=== PATIENT | female | born 1945 | race Caucasian/White ===

== ENCOUNTER 2022-03-17 13:29 | Inpatient (IN) | payer MEDICARE, OTHER ==
[~2022-03-17] VITALS: Ht 170.2 cm; Wt 78.9 kg
--- NOTE | 2022-03-17 13:45 | NUR ---
Spoke with CAITLIN Perdomo regarding psych eval, she stated Monik will be here for eval, eta 1430.
--- NOTE | 2022-03-17 15:32 | NUR ---
Monik at bedside for psych eval.
--- NOTE | 2022-03-17 16:37 | NUR ---
Finished calling report to KEON Aguilar.
--- NOTE | 2022-03-17 17:00 | NUR ---
Admitted at a 76 years old female from ER to the [facility]HU on a 5150 for DTS. Per hold, patient has a long history of depression and overdose of 30 pills 300 mg gabapentin and 30 pills of 50 mg of Tramadol was hospitalization at [facility] until medical clear Upon admission, patient was alert and oriented x4 denies any suicidal ideation . She denied SI/HI/AH/VH.she signed admission papers and her skin assessment was done Patient was advised of her hold and her advisement was given as well as her booklet of patient's .
[2022-03-17 17:01] VITALS: BP 148/94
[2022-03-17] MEDS ORDERED: MAGNESIUM HYDROXIDE 30 ML LIQUID UDC PO PRN (17:15)
[2022-03-17] MEDS ORDERED: ACETAMINOPHEN 325 MG TABLET PO PRN (17:15)
[2022-03-17] MEDS ORDERED: ZOLPIDEM 5 MG TABLET PO PRN (17:15)
[2022-03-17] MEDS ORDERED: MAG HYDROX/AL HYDROX/SIMETH 30 ML LIQUID UDC PO PRN (17:15)
[2022-03-17] MEDS ORDERED: GABA300C PO (18:08)
[2022-03-17] MEDS ORDERED: LOSA100T3 PO (18:08)
--- NOTE | 2022-03-17 18:26 | NUR ---
Patient came in for admission to room 138 bed A, alert and oriented x4. Patient appears to be very anxious, concerns about her roommate and ability to rest without being disturbed. Patient has old bruises in left upper arm and left lower abdomen, and old surgical scar mid abdominal area. She ambulates ad noemy, continent of bowel and bladder. She denied any thought of suicidal at this time. Oriented to unit, her room, meals time, telephone use and visiting hours.
[2022-03-17 19:42] VITALS: BP 119/86
[2022-03-17] MEDS: GABAPENTIN 300 MG CAPSULE PO SCH (20:26)
[2022-03-17] MEDS: LORAZEPAM 0.5 MG TABLET PO PRN (20:35)
--- NOTE | 2022-03-18 04:49 | NUR ---
Received patient in day room. Awake and alert. This singer songwriter engaged the patient in conversation, at which time the patient agreed to make a contract for safety. Stating that " I will never try to hurt myself ever again". As the conversation went on, the patient did show poor insight with regards to her depression and alternative coping mechanisms. The patients speech and thought process were slow and tangential. The patient appeared artificially bright and minimized the suicide attempt that brought her into the hospital. Safety Stratiges are in place at this time. Monitoring the patient for signs of depression, hopelessness and isolation.
[2022-03-18 07:44] VITALS: BP 128/80
[2022-03-18 07:56] LABS: BILIRUBIN,TOTAL 0.5 mg/dL (0.2-1.0); CREATININE 1.1 mg/dL (0.6-1.3); POTASSIUM 4.3 mmol/L (3.5-5.1); TOTAL PROTEIN, SERUM 7.6 g/dL (6.4-8.2)
[2022-03-18] MEDS: LOSARTAN POTASSIUM 50 MG TABLET PO SCH (08:10)
--- NOTE | 2022-03-18 15:00 | NUR ---
Received patient is alert and oriented x4,denies any suicidal ideation ,pacing in hallway ,made few phone called to her son ,attend in group activity with min. participated. patient feels hopeless and helpless due to housing situation but state that ' i am not going to harm myself again.patient is guard superficially bright ,will continue close monitoring.
[2022-03-18 16:28] VITALS: BP 119/73
[2022-03-18] MEDS: SERTRALINE HCL 50 MG TABLET PO SCH (17:16)
[2022-03-18] MEDS: GABAPENTIN 300 MG CAPSULE PO SCH (20:49)
[2022-03-18] MEDS: LORAZEPAM 0.5 MG TABLET PO PRN (20:49)
--- NOTE | 2022-03-19 03:22 | NUR ---
This patient is withdrawn , shutdown and isolative tonight compared to the previous night. Although the patient denies SI, she admits to being depressed. The patient is having difficulty formulating a plan upon discharge, has poor coping mechanisms and is minimizing her SA. Continuing to encourage this patient to verbalize her feelings . Safety Stratiges remain in place.
[2022-03-19 07:53] VITALS: BP 131/86
[2022-03-19] MEDS: LOSARTAN POTASSIUM 50 MG TABLET PO SCH (08:47)
[2022-03-19] MEDS ORDERED: GUAIFENESIN/CODEINE 5 ML LIQUID UDC PO PRN (15:15)
[2022-03-19 16:03] VITALS: BP 140/87
[2022-03-19] MEDS: SERTRALINE HCL 50 MG TABLET PO SCH (17:08)
[2022-03-19 20:16] VITALS: BP 144/74
--- NOTE | 2022-03-19 20:30 | NUR ---
Received patient in her room in bed. she is noted sleeping but easily arousable. she is A/O x 4 abler to verbalized her feelings. Patient appears depressed, low mood, isolative and withdrawn. She stated that, "I didn't have any plans to kill myself. that night i was feelings sad and stressing about my housing situation and where i was going to go. i just took all those pills since i had them but then i told my friend's son. he got so mad at me. he told me, "why you did this to me, why?". i felt so bad i did that, next i woke up in the hospital". patient denied SI/HI/VH/AH she is able to verbally CFS. denial is convincing. Patient was given PO fluids and snacks. She is reassured for her safety. safety and fall precautions are in place. V/S stable. will continue to monitor.
[2022-03-19] MEDS: GABAPENTIN 300 MG CAPSULE PO SCH (20:54)
[2022-03-20 08:07] VITALS: BP 157/77
[2022-03-20] MEDS: LOSARTAN POTASSIUM 50 MG TABLET PO SCH (08:34)
--- NOTE | 2022-03-20 10:08 | NUR ---
GPS: Nursing Notes: Request of [facility] Hearing: Staff gave a copy of 5250 to patient. Staff explained 5250 to patient. Also, patient was inform that a certification review hearing will be held within four days. Patient's rights advocate will call him and provide assistance in preparing for the hearing and answer his questions. the court has been notified of this certification on this day via [facility] portal.
--- NOTE | 2022-03-20 11:01 | NUR ---
Firearms Report: Phlebotomy Lab Assistant completed and submitted a [employer] firearms report for 5150 danger to self certifications. A copy of report has been placed in patient chart.
[2022-03-20] MEDS: SERTRALINE HCL 50 MG TABLET PO SCH (12:30)
--- NOTE | 2022-03-20 14:03 | NUR ---
ALE[facility] Initial Discharge Note: Pt [place] resides at [address] [place] [address] ([phone]). Pt explains the house will be for sale and she will need to find another residence. Pt states that her ground water contractor is helping her find someone in the community to rent from. ALEKS will continue to work with pt, family, and MD to ensure a safe and proper discharge plan. Addendum: 03/20/22 at 1404 by CAITLIN Silverman Pt will discharge to home until the house is sold and she finds another residence.
[2022-03-20 16:11] VITALS: BP 144/85
[2022-03-20] MEDS: GABAPENTIN 300 MG CAPSULE PO SCH (21:02)
[2022-03-20 21:20] VITALS: BP 147/76
--- NOTE | 2022-03-21 01:36 | NUR ---
Received patient in her room in bed. she is noted awake. she is A/O x 4 abler to verbalized her feelings. Patient appears less depressed but continue isolative and withdrawn. She denied SI. she stated that, "that is the past and i don't want to ever do anything like that. i am going to stay at the house till it sold then i will find a place. i have friends that will help me find a place". she is able to verbally CFS. denial is convincing. Patient was given PO fluids and snacks. She is reassured for her safety. safety and fall precautions are in place. V/S stable. will continue to monitor.
[2022-03-21 07:30] VITALS: BP 137/81
[2022-03-21] MEDS: LOSARTAN POTASSIUM 50 MG TABLET PO SCH (08:46)
--- NOTE | 2022-03-21 12:19 | NUR ---
SNF Referral: SW faxed patient's referral packet including: History and Physical, Consultation, Progress Notes, Medication List and Labs to the following facility for review and possible usp placement: [facility] [address] [place] [address] (p: [phone], e-fax: [phone]).
[2022-03-21] MEDS: SERTRALINE HCL 50 MG TABLET PO SCH (12:47)
--- NOTE | 2022-03-21 15:42 | NUR ---
Received patient awake in the hallway. A/O X 3 to person, place. Patient is cooperative, sociable, participating in group activities, compliant with medications, depressed. Patient is encourage to verbalize concerns. Fall and safety precautions implemented.
[2022-03-21 15:55] VITALS: BP 148/88
--- NOTE | 2022-03-21 16:30 | NUR ---
SW Discharge Plan Update: SW received call from drea Chanel with [facility], [address] [facility], [place] [address] (p: [phone], e-fax: [phone]) informing they are able to accept pt when she is ready for discharge.
--- NOTE | 2022-03-21 16:32 | NUR ---
SW Family Contact: SW called and spoke with pt's son, Azeem, ([phone]) and provided discharge plan updates to [facility].
[2022-03-21 20:01] VITALS: BP 139/73
[2022-03-21] MEDS: GABAPENTIN 300 MG CAPSULE PO SCH (20:14)
--- NOTE | 2022-03-21 20:18 | NUR ---
GPS: Pt.was offered a flu shot and a pna vaccine. Risks vs benefits explained and verbalized understanding. Pt.said " yes " to flu vaccine but "no" to pna vaccine. Pt.wants the flu shot to be administered tomorrow around 10 am and not tonight. Pharmacy made aware.
--- NOTE | 2022-03-22 06:22 | NUR ---
GPS: Pt.slept for 9 hrs.last night. Less anxious and depressed when asked. Denies SI. Re-assured prn. Will continue to monitor.
[2022-03-22 07:30] VITALS: BP 148/87
[2022-03-22] MEDS: LOSARTAN POTASSIUM 50 MG TABLET PO SCH (08:49)
[2022-03-22] MEDS ORDERED: INFLUENZA VACCINE 2022-2023 0.5 ML DISP.SYRIN IM ONE (10:00)
--- NOTE | 2022-03-22 10:00 | NUR ---
Brief Substance Abuse Intervention: Patient was provided with a brief substance abuse intervention and referred to the following substance abuse programs: [facility] ([phone]); [facility] ([phone]); [facility] ([phone]).
--- NOTE | 2022-03-22 10:20 | NUR ---
Patient had a court hearing today, sports activities foul judge decided 14 Day probable cause for GD and DS.
--- NOTE | 2022-03-22 10:40 | NUR ---
Patient was also referred to the following smoking cessation programs: [facility] ([phone]); [facility] ([phone]); [facility] ([phone]).
--- NOTE | 2022-03-22 10:41 | NUR ---
Patient is given Influenza vaccine 0.5 ml, left deltoid, lot number [id number], expiration 10/06/22, [id number] system controller at 10:32 am.
[2022-03-22] MEDS: SERTRALINE HCL 50 MG TABLET PO SCH (13:23)
--- NOTE | 2022-03-22 14:38 | NUR ---
Received patient awake in the activity room. Patient is A/O X 4 to person, place, situation. Patient is pleasant, calm, cooperative, compliant with medications, depressed, preoccupied about her living situation. Patient denies SI. Emotional support provided. Fall and safety precautions implemented.
[2022-03-22 16:09] VITALS: BP 133/80
[2022-03-22 20:07] VITALS: BP 169/78
[2022-03-22] MEDS: GABAPENTIN 300 MG CAPSULE PO SCH (20:13)
--- NOTE | 2022-03-23 02:33 | NUR ---
Received patient in her room with the lights off. When encouraged to come out from the room for a snack because it was early in the evening, the patient made it clear that she wants to just go to sleep instead. This business writer attempted to engage in a meaningful conversation, but the patient was superficial, closed off, and minimizes the SA. Her affect was artificially bright and made statements such as "Everything is great, I am fine!". Staff continues with strict safety strategies including verbal contract for safety. The focus of conversation at this time is to encourage verbalization of coping strategies, which the patient has poor insight and is unable to formulate a plan when discharged.
[2022-03-23 07:41] VITALS: BP 143/80
[2022-03-23] MEDS: LOSARTAN POTASSIUM 50 MG TABLET PO SCH (09:23)
[2022-03-23] MEDS: SERTRALINE HCL 50 MG TABLET PO SCH (12:14)
[2022-03-23] MEDS: AMLODIPINE 5 MG TABLET PO SCH (12:14)
[2022-03-23 17:06] VITALS: BP 144/76
[2022-03-23 19:53] VITALS: BP 135/77
[2022-03-23] MEDS: GABAPENTIN 300 MG CAPSULE PO SCH (20:05)
[2022-03-24 07:43] VITALS: BP 127/74
[2022-03-24] MEDS: AMLODIPINE 5 MG TABLET PO SCH (08:49)
[2022-03-24] MEDS: LOSARTAN POTASSIUM 50 MG TABLET PO SCH (08:49)
[2022-03-24] MEDS: SERTRALINE HCL 50 MG TABLET PO SCH (12:31)
[2022-03-24 17:00] VITALS: BP 144/83
--- NOTE | 2022-03-24 17:34 | NUR ---
Received patient is alert and oriented x4,stay in her room denies any suicidal ideation ,pacing in hallway ,made few phone called to her son ,attend in group activity with min. participated. patient feels hopeless and helpless due to housing situation but state that ' i am not going to harm myself again.patient is guard superficially bright ,will continue close monitoring.
[2022-03-24 19:57] VITALS: BP 128/67
[2022-03-24] MEDS: GABAPENTIN 300 MG CAPSULE PO SCH (20:03)
[2022-03-25 07:34] VITALS: BP 141/72
[2022-03-25] MEDS: AMLODIPINE 5 MG TABLET PO SCH (08:12)
[2022-03-25] MEDS: LOSARTAN POTASSIUM 50 MG TABLET PO SCH (08:12)
[2022-03-25] MEDS: SERTRALINE HCL 50 MG TABLET PO SCH (13:05)
--- NOTE | 2022-03-25 15:11 | NUR ---
Received patient awake in her room. Patient is cooperative with nursing care, compliant with medications, depressed, calm. Patient is A/O X 3 to person, place. Patient is encourage to verbalize concerns. Fall and safety precautions implemented.
[2022-03-25 16:03] VITALS: BP 120/81
[2022-03-25 19:44] VITALS: BP 132/67
[2022-03-25] MEDS: GABAPENTIN 300 MG CAPSULE PO SCH (20:03)
[2022-03-26 07:57] VITALS: BP 130/79
[2022-03-26] MEDS: AMLODIPINE 5 MG TABLET PO SCH (08:23)
[2022-03-26] MEDS: LOSARTAN POTASSIUM 50 MG TABLET PO SCH (08:23)
[2022-03-26] MEDS: SERTRALINE HCL 50 MG TABLET PO SCH (12:16)
[2022-03-26 15:30] VITALS: BP 123/74
[2022-03-26 19:58] VITALS: BP 118/58
[2022-03-26] MEDS: GABAPENTIN 300 MG CAPSULE PO SCH (20:47)
--- NOTE | 2022-03-27 04:36 | NUR ---
Pt is somewhat withdrawn and isolated in her room sleeping. Compliant with medications and interactions with staff. Will continue to monitor.
[2022-03-27 08:16] VITALS: BP 151/86
[2022-03-27] MEDS: OMEGA-3 FATTY ACIDS/FISH OIL CAPSULE PO SCH (08:35)
[2022-03-27] MEDS: AMLODIPINE 5 MG TABLET PO SCH (08:35)
[2022-03-27] MEDS: LOSARTAN POTASSIUM 50 MG TABLET PO SCH (08:36)
[2022-03-27] MEDS: SERTRALINE HCL 50 MG TABLET PO SCH (12:26)
[2022-03-27 16:00] VITALS: BP 117/88
[2022-03-27 19:34] VITALS: BP 121/80
[2022-03-27] MEDS: GABAPENTIN 300 MG CAPSULE PO SCH (20:43)
--- NOTE | 2022-03-28 06:24 | NUR ---
GPS: Remain pleasant calm and cooperative with meds and care. no agitation noted. slept 7.15 hrs through the night. continue plan of care.
[2022-03-28 07:38] VITALS: BP 125/71
[2022-03-28] MEDS: AMLODIPINE 5 MG TABLET PO SCH (08:31)
[2022-03-28 08:32] VITALS: BP 125/71
[2022-03-28] MEDS: OMEGA-3 FATTY ACIDS/FISH OIL CAPSULE PO SCH (08:32)
[2022-03-28] MEDS: LOSARTAN POTASSIUM 50 MG TABLET PO SCH (08:32)
--- NOTE | 2022-03-28 09:34 | NUR ---
ALEKS Discharge Note: Pt will be discharged to [facility] [address] [place] [address] ([phone]) via Ambulance transportation at 11AM. ALEKS spoke with admin coordinator, Yanique ([phone]) at the facility who states they are ready to accept the patient today. Pt is aware and agreeable with discharge plan. Pts son, Azeem ([phone]) is aware and agreeable with the discharge plan. Pt is alert and oriented x4, is unable to plan for self-care at this time. However, pt is willing to accept care at SNF. Pt denies any suicidal or homicidal ideation. Pt will follow-up at the facility with Psychiatrist, Dr. Hidalgo ([phone]) and Nurses Medical Assistants Phlebotomists, Dr. Mcmullen. Pt presents with calm mood and congruent affect. PHARMACY: [facility] ([phone]) [address] [facility] [address].
--- NOTE | 2022-03-28 11:21 | NUR ---
Received orders to discharge this patient to [address] [address] ([phone]) via Ambulance transportation at 11AM. All belongings were returned to patient. Patient denies SI/HI AH/VH, SOB, pain or any discomfort. Patient was agreeable with discharge plan, and signed all discharge documents. Emotional support given. Fall and safety precautions implemented.
== END 2022-03-28 11:20 | DRG 881 ==
LOC: ER 13:29 → GPS 16:37
PROVIDERS: ADMIT Psychiatry & Neurology Psychosomatic Medicine; ATTEND Nurse Practitioner Acute Care
DX: F32.9 Major depressive disorder, single episode, unspecified (principal); E87.1 Hypo-osmolality and hyponatremia; R45.851 Suicidal ideations; T40.4 Poisoning by, adverse effect of and underdosing of other synthetic narcotics; G89.29 Other chronic pain; I10 Essential (primary) hypertension; Z85.3 Personal history of malignant neoplasm of breast; Z20.822 Contact with and (suspected) exposure to COVID-19; F32.A Depression, unspecified
CPT/HCPCS: 36415; 90686; A4663